=== PATIENT | female | born 1955 | race Caucasian/White ===

== ENCOUNTER 2020-03-02 15:49 | Emergency (ER) | payer MEDICAID ==
[~2020-03-02] VITALS: Ht 165.1 cm; Wt 70.8 kg
[~2020-03-02 15:49] MED LIST: DIAZ10TA3; VENL150C2
[2020-03-02 16:02] VITALS: BP 106/74
[2020-03-02] MEDS ORDERED: KETOROLAC TROMETH 60MG/2ML VIAL IM ONE (16:15)
== END 2020-03-02 17:07 | disposition home or self-care (01) ==
LOC: ER 15:49
DX: S46.001A Unspecified injury of muscle(s) and tendon(s) of the rotator cuff of right shoulder, initial encounter (principal); M19.011 Primary osteoarthritis, right shoulder; W18.39XA Other fall on same level, initial encounter; Y93.89 Activity, other specified; Y92.89 Other specified places as the place of occurrence of the external cause; Y99.8 Other external cause status
CPT/HCPCS: 73030; 96372; 99283; J1885